=== PATIENT | male | born 1950 | race Caucasian/White ===

== ENCOUNTER 2017-06-18 15:57 | Emergency (ER) | payer SELFPAY ==
[~2017-06-18] VITALS: Ht 175.3 cm; Wt 78.0 kg
[2017-06-18 16:00] VITALS: BP 128/83; PULSE 103; RESP 14; TEMP 98; O2SAT 97
[2017-06-18] MEDS ORDERED: VENL37.5 PO ×2 (16:28→16:37)
[2017-06-18] MEDS ORDERED: VENL75TA PO ×2 (16:28→16:37)
--- NOTE | 2017-06-18 16:37 | PD ---
HPI . Refill request Chief Complaint: Medication Refill Request Time Seen by Provider: 16:23 Travel History International Travel<30 days: Yes Contact w/Intl Traveler<30days: Yes Name of Country Traveled to: [place] Traveled to known affect area: No History of Present Illness HPI Patient presents requesting a refill for Effexor. He is from [place] here visiting his son who is a student at [email or web address]. He states that they decided to extend her stay here and he will be running out of his medication for returning home to [place]. The pharmacy would not accept a prescription from his physician in [place]. Sclerae presented to us. He denies any homicidal or suicidal ideation. He states that the Effexor is working for him. He is on Effexor because of depression. [facility] Social History Tobacco Use: No Allergies-Medications (Allergen,Severity, Reaction): Coded Allergies: No Known Allergies (Unverified , 06/18/17) Reported Meds & Prescriptions Reported Meds & Active Scripts Active Reported Effexor (Venlafaxine HCl) 75 Mg Tab 75 Mg PO DAILY Effexor (Venlafaxine HCl) 37.5 Mg Tab 37.5 Mg PO DAILY Review of Systems Except as stated in HPI: all other systems reviewed are Neg Physical Exam Narrative GENERAL: Awake and alert and in no acute distress. Very pleasant gentleman. SKIN: Warm and dry. HEAD: Normocephalic/atraumatic. EYES: Pupils are equal. Extraocular movements are intact. NECK: Normal range of motion. CARDIOVASCULAR: Regular rate and rhythm. RESPIRATORY: Nonlabored respirations. MUSCULOSKELETAL: Atraumatic. NEUROLOGICAL: Nonfocal. PSYCHIATRIC: Appropriate mood and affect. Data Data Last Documented VS Vital Signs Date Time Temp Pulse Resp B/P (MAP) Pulse Ox O2 Delivery O2 Flow Rate FiO2 06/18/17 16:00 98.0 103 14 128/83 (98) 97 MDM Medical Decision Making Medical Screen Exam Complete: Yes Emergency Medical Condition: Yes Differential Diagnosis My differential diagnosis includes poor planning, inappropriate use of medications, drug-seeking behavior. Narrative Course This patient presents requesting a refill of his chronic Effexor. I will provide the requested refill. Diagnosis Primary Impression: Medication refill Patient Instructions: General Instructions Departure Forms: Tests/Procedures Med/Other Pt SpecificInfo: Prescription(s) given Scripts Venlafaxine (Effexor) 75 Mg Tab 75 MG PO BID for 30 Days, #60 TAB 0 Refills Prov: Starla Mccarthy MD 06/18/17 Venlafaxine (Effexor) 37.5 Mg Tab 37.5 MG PO HS for 30 Days, #30 TAB 0 Refills Prov: Starla Mccarthy MD 06/18/17 Disposition: 01 DISCHARGE HOME Condition: Stable Starla Mccarthy MD Jun 18, 2017 16:37
== END 2017-06-18 17:02 | disposition home or self-care (01) ==
LOC: NEPD 15:57
DX: Z76.0 Encounter for issue of repeat prescription (principal); F32.9 Major depressive disorder, single episode, unspecified
CPT/HCPCS: 99281